=== PATIENT | female | born 1950 | race Caucasian/White ===

== ENCOUNTER 2017-03-05 06:11 | Emergency (ER) | payer OTHER ==
[~2017-03-05 06:11] MED LIST: HYDR-2768 PO; LABE100T2 PO; LISI40TA PO; PERC7.5T13 PO; TAB-TAB PO; ZOCO40TA PO
[2017-03-05 06:14] VITALS: BP 189/98; PULSE 127; RESP 15; TEMP 98.9; O2SAT 97
[2017-03-05 06:28] VITALS: BP 174/87; PULSE 107; RESP 17; TEMP 98.4; O2SAT 97
[2017-03-05] MEDS ORDERED: SODIUM CHLOR 0.9% 1000 ML INJ 1,000 ML IV SCH (06:37)
[2017-03-05] MEDS ORDERED: KETOROLAC TROMETHAMINE 30 MG/ML (IVP) VIAL IVP ONE (06:45)
[2017-03-05] MEDS ORDERED: SODIUM CHLORIDE 0.9% FLUSH 10 ML FLUSH IV FLUSH PRN (06:45)
[2017-03-05] MEDS ORDERED: ZOLP10TA3 PO (06:48)
[2017-03-05] MEDS ORDERED: ATOR20TA15 PO (06:48)
[2017-03-05] MEDS ORDERED: LORA-373 PO (06:48)
[2017-03-05] MEDS ORDERED: CHLO25TA2 PO (06:48)
[2017-03-05] MEDS ORDERED: LOSA100T PO (06:48)
[2017-03-05] MEDS ORDERED: AMLO5TAB2 PO (06:48)
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
[2017-03-05 07:13] LABS: AUTOMATED NEUTROPHIL # 7.5 TH/MM3 (1.8-7.7); BASOPHIL % 0.4 % (0.0-2.0); EOSINOPHIL # 0.2 TH/MM3 (0-0.4); EOSINOPHIL % 1.6 % (0.0-4.0); HEMATOCRIT 42.4 % (35.0-46.0); HEMO FLAGS DIFF FINAL; LYMPH % 20.9 % (9.0-44.0); LYMPHOCYTE # 2.3 TH/MM3 (1.0-4.8); MEAN CORPUSCULAR HEMOGLOBIN 30.7 PG (27.0-34.0); MEAN CORPUSCULAR HGB CONC 34.1 % (32.0-36.0); MONO % 8.1 % (0.0-8.0); PLATELET COUNT 238 TH/MM3 (150-450); RED BLOOD COUNT 4.71 MIL/MM3 (4.00-5.30); RED CELL DISTRIBUTION WIDTH 13.1 % (11.6-17.2); WHITE BLOOD COUNT 10.9 TH/MM3 (4.0-11.0)
[2017-03-05 07:32] LABS: ALT (GPT) 40 U/L (10-53); ANION GAP 11 MEQ/L (5-15); AST (GOT) 24 U/L (15-37); BICARBONATE 25.6 MEQ/L (21.0-32.0); BLOOD UREA NITROGEN 14 MG/DL (7-18); CHLORIDE 101 MEQ/L (98-107); GLOMERULAR FILTRATION RATE 92 ML/MIN (>89); POTASSIUM 3.2 MEQ/L (3.5-5.1); SODIUM (NA) 138 MEQ/L (136-145)
[2017-03-05 07:35] LABS: ALKALINE PHOSPHATASE 108 U/L (45-117); TOTAL BILIRUBIN ADULT 0.3 MG/DL (0.2-1.0)
--- NOTE | 2017-03-05 07:45 | PD ---
Physical Exam Date Seen by Provider: Mar 05, 2017 Narrative Care assumed from Dr. Devries at 7 AM pending labs. Data Data Last Documented VS Vital Signs Date Time Temp Pulse Resp B/P Pulse Ox O2 Delivery O2 Flow Rate FiO2 03/05/17 06:35 107 17 03/05/17 06:28 98.4 174/87 97 03/05/17 06:14 Room Air Orders Urinalysis - C+S If Indicated (03/05/17 06:17) Complete Blood Count With Diff (03/05/17 06:37) Comprehensive Metabolic Panel (03/05/17 06:37) Iv Access Insert/Monitor (03/05/17 06:37) Ecg Monitoring (03/05/17 06:37) Oximetry (03/05/17 06:37) Sodium Chlor 0.9% 1000 Ml Inj (Ns 1000 M (03/05/17 06:37) Sodium Chloride 0.9% Flush (Ns Flush) (03/05/17 06:45) Ketorolac Inj (Toradol Inj) (03/05/17 06:45) Labs Laboratory Tests Test 03/05/17 03/05/17 06:45 08:00 White Blood Count 10.9 TH/MM3 Red Blood Count 4.71 MIL/MM3 Hemoglobin 14.5 GM/DL Hematocrit 42.4 % Mean Corpuscular Volume 90.0 FL Mean Corpuscular Hemoglobin 30.7 PG Mean Corpuscular Hemoglobin 34.1 % Concent Red Cell Distribution Width 13.1 % Platelet Count 238 TH/MM3 Mean Platelet Volume 8.1 FL Neutrophils (%) (Auto) 69.0 % Lymphocytes (%) (Auto) 20.9 % Monocytes (%) (Auto) 8.1 % Eosinophils (%) (Auto) 1.6 % Basophils (%) (Auto) 0.4 % Neutrophils # (Auto) 7.5 TH/MM3 Lymphocytes # (Auto) 2.3 TH/MM3 Monocytes # (Auto) 0.9 TH/MM3 Eosinophils # (Auto) 0.2 TH/MM3 Basophils # (Auto) 0.0 TH/MM3 CBC Comment DIFF FINAL Differential Comment Sodium Level 138 MEQ/L Potassium Level 3.2 MEQ/L Chloride Level 101 MEQ/L Carbon Dioxide Level 25.6 MEQ/L Anion Gap 11 MEQ/L Blood Urea Nitrogen 14 MG/DL Creatinine 0.65 MG/DL Estimat Glomerular Filtration 92 ML/MIN Rate Random Glucose 100 MG/DL Calcium Level 9.9 MG/DL Total Bilirubin 0.3 MG/DL Aspartate Amino Transf 24 U/L (AST/SGOT) Alanine Aminotransferase 40 U/L (ALT/SGPT) Alkaline Phosphatase 108 U/L Total Protein 8.0 GM/DL Albumin 3.9 GM/DL Urine Color LIGHT-YELLOW Urine Turbidity CLEAR Urine pH 6.5 Urine Specific [place] 1.009 Urine Protein NEG mg/dL Urine Glucose (UA) NEG mg/dL Urine Ketones NEG mg/dL Urine Occult Blood NEG Urine Nitrite NEG Urine Bilirubin NEG Urine Urobilinogen LESS THAN 2.0 MG/DL Urine Leukocyte Esterase SMALL Urine RBC LESS THAN 1 /hpf Urine WBC 2 /hpf Urine Squamous Epithelial 1 /hpf Cells Urine Bacteria OCC /hpf Microscopic Urinalysis Comment CULT NOT INDICATED MDM Supervised Visit with [facility]: No Narrative Course CBC & BMP Diagram 03/05/17 06:45 LFTs are normal. UA>>small LE, occ bact The history, exam, diagnostic testing, and current condition do not suggest any significant pathology to warrant further testing, continued ED treatment, Diagnosis Primary Impression: Right flank pain Patient Instructions: Flank Pain (ED), General Instructions Med/Other Pt SpecificInfo: Prescription(s) given Scripts Cyclobenzaprine (Flexeril)10 Mg Tab10 Mg PO TID #30 TAB Ref 0 Prov:Lauren Morales MD 03/05/17 Tramadol (Ultram)50 Mg Tab50 Mg PO Q4H PRN (PAIN) #12 TAB Ref 0 Prov:Lauren Morales MD 03/05/17 Disposition: 01 DISCHARGE HOME Condition: Stable Lauren Morales MD Mar 05, 2017 07:45
[2017-03-05 09:33] LABS: BACTERIA, URINE OCC /hpf; BLOOD, URINE NEG (NEG); COMMENT (UR) CULT NOT INDICATED; CULTURE IF INDICATED CULT NOT INDICATED; GLUCOSE,URINE NEG (NEG); KETONE, URINE NEG (NEG); NITRITE,URINE NEG (NEG); PH, URINE 6.5 (5.0-8.5); SQUAMOUS EPITHELIAL CELL URINE 1 /hpf (0-5); URINE COLOR LIGHT-YELLOW (YELLW/STRAW)
[2017-03-05] MEDS ORDERED: CYCL1TAB29 PO (09:44)
[2017-03-05] MEDS ORDERED: ULTR50TA5 PO (09:44)
== END 2017-03-05 10:14 | disposition home or self-care (01) ==
LOC: NEPC 06:11
DX: R10.9 Unspecified abdominal pain (principal); E78.00 Pure hypercholesterolemia, unspecified; I10 Essential (primary) hypertension
CPT/HCPCS: 80053; 81001; 85025; 96361; 96374; 99284; J1885; J7030